=== PATIENT | male | born 1960 | race Two or more races ===

== ENCOUNTER 2019-01-29 07:11 | Day surgery (SDC) | payer OTHER ==
[~2019-01-29 07:11] MED LIST: CEFAZOLIN SODIUM 2 GM in DEXTROSE 5%-WATER 100 ML IV PRN
[2019-01-29] MEDS ORDERED: ONDANSETRON HCL INJ/PF 4 MG/2 ML SDV ONE (08:23)
[2019-01-29] MEDS ORDERED: MIDAZOLAM 2 MG/2 ML INJ ONE (08:23)
[2019-01-29] MEDS ORDERED: DEXAMETHASONE SOD PHOSPHATE INJ 4 MG/1 ML VIAL ONE (08:23)
[2019-01-29] MEDS ORDERED: FENTANYL CITRATE INJ/PF 250 MCG/5 ML AMPULE ONE (08:23)
[2019-01-29] MEDS ORDERED: PROPOFOL INJ 200 MG/20 ML VIAL IV ONE (08:23)
[2019-01-29] MEDS ORDERED: MINERAL OIL (STERILE) 10 ML VIAL ONE (08:27)
[2019-01-29] MEDS ORDERED: BUPIVACAINE HCL 0.5%/EPI 1:200000 INJ 1.8 ML CARTRIDGE ONE (08:28)
[2019-01-29] MEDS ORDERED: OXYMETAZOLINE HCL 0.05% NASAL SPRAY 15 ML BOTTLE ONE (08:28)
[2019-01-29] MEDS ORDERED: ROCURONIUM BROMIDE INJ 50 MG/5 ML VIAL IV ONE (08:29)
[2019-01-29] MEDS ORDERED: BUPIVACAINE HCL 0.5%-EPI 1:200000 INJ/PF 30 ML VIAL ONE (09:37)
[2019-01-29] MEDS: BACITRACIN ZINC OINTMENT 15 GM ONE ×2 (11:00)
[2019-01-29] MEDS: FENTANYL CITRATE INJ/PF 100 MCG/2 ML AMPUL ONE ×2 (11:40→12:00)
--- NOTE | 2019-02-11 08:48 | Operative Report ---
Operative Report-[facility] Operative Report: Date of surgery: January 29, 2019 PREOPERATIVE DIAGNOSES: 1. Nasal Deformities, Acquired 2. Chronic Nasal Dyspnea 3. Nasal septal deviation, Acquired 4. Bilateral inferior turbinate hypertrophy POSTOPERATIVE DIAGNOSES: 1. Nasal Deformities, Acquired 2. Chronic Nasal Dyspnea 3. Nasal septal deviation, Acquired 4. Bilateral inferior turbinate hypertrophy PROCEDURES: 1. Septoplasty 2. Bilateral intramural inferior turbinate reductions using submucus resection techniques SURGEON: Dr. Antwan Acosta Anesthesia Staff: TIO Traore ANESTHESIA: General endotracheal tube anesthesia/GETA DRAINS: None SPONGE COUNT: Verified NEEDLE COUNT: Verified SPECIMEN/MATERIALS FORWARD TO THE LAB: None ESTIMATED BLOOD LOSS: 30 mL TOTAL IV FLUIDS: 900 mL COMPLICATIONS: None FINDINGS: 1. Left nasal septal deviation involving bone and cartilage and the right maxillary crest was exposed due to septal dislocation to the left, and there was also a prominent right maxillary crest spur/septal spur. 2. Bialateral Inferior turbinate hypertrophy. INDICATIONS: This is a 58-year-old male patient who was seen and evaluated in the [place] otolaryngology office. The patient was referred for and they complained of a history of chronic nasal dyspnea over the years. The patient has desired to undergo nasal surgery to improve functional nasal airflow and overall quality of life. The procedure, and all of the risks and complications were all discussed in detail with the patient. They voiced an understanding, agreed to proceed, and consent was obtained. DESCRIPTION OF OPERATIVE PROCEDURE: The patient was taken to the main operating room and placed on the operating room table in the supine position. Appropriate monitors were placed. Using mask and IV access general anesthesia was induced. The patient was then transorally intubated without difficulty. The table was next positioned for nasal surgery. The patient underwent a nasal examination and local anesthetic with epinephrine was administered to establish a nasal block. The patient next had two Afrin soaked neuropatties placed into each nasal passage. The patient was then prepped and draped in the usual fashion for nasal surgery. The neuropatties were removed and the patient underwent a hemitransfixion incision. There was elevation of the mucoperichondrial and mucoperiosteal flaps without difficulty. The bony cartilaginous junction was identified and divided and the most deviated portions of the bony and cartilaginous septum were removed without difficulty. The right maxillary crest spur/septal spur were removed without difficulty using a Vgouge. Septal cartilage along the maxillary crest was trimmed and contoured to allow the septal cartilage to be relocated along the maxillary crest and fixed in place at the anterior nasal spine with suture. There was a greater then 1.5 X 1.5 cm cartilaginous L-Strut preserved. Attention was now turned to performing bilateral inferior turbinate reductions. The turbinate bipolar wand was used to make 2 - 3 intramural passes in each inferior turbinate. At this point the turbinate microdebrider system at a setting of 1500 RPM was used to perform bilateral inferior turbinate submucous resections. This was followed by use of the [place] elevator to outfracture each inferior turbinate. Excessive/redundant mucosa at the anterior portion of the inferior turbinates was next trimmed with margins reapproximated with chromic suture. At this point the nose was thoroughly suctioned. Cartilage which had been excised during the case was placed back between the mucosal flaps. At this point the mucosal flaps were reapproximated and the hemitransfixion incision was closed using Chromic suture. This was followed by placement of one modified Merocel nasal pack with bacitracin ointment per nasal passage that were secured at the caudal aspect with 4-0 Prolene suture. The nose was then cleaned and dried. Next, the patient was returned to the anesthesia staff and was allowed to emerge from general anesthesia. The patient was extubated in the main operating room and was then transported to the postanesthesia recovery unit in stable condition. There were no complications .
== END 2019-01-29 12:45 | disposition home or self-care (01) ==
LOC: SC 07:11
PROVIDERS: ATTEND Otolaryngology
DX: J34.2 Deviated nasal septum (principal); M95.0 Acquired deformity of nose; S09.92XS Unspecified injury of nose, sequela; J34.3 Hypertrophy of nasal turbinates; G57.33 Lesion of lateral popliteal nerve, bilateral lower limbs; M26.609 Unspecified temporomandibular joint disorder, unspecified side; R06.83 Snoring; Z86.69 Personal history of other diseases of the nervous system and sense organs; E11.9 Type 2 diabetes mellitus without complications; G47.33 Obstructive sleep apnea (adult) (pediatric)
CPT/HCPCS: 30520; 30802; 82962; 00160; J2250; J3490 ×5; J0690; J1100; J3010 ×2; J2405; J7060; J2704; 160